=== PATIENT | male | born 1980 | race Caucasian/White ===

== ENCOUNTER 2022-12-12 15:56 | Outpatient (CLI) | payer SELFPAY | END 2022-12-12 15:57 | disposition home or self-care (01) | PROVIDERS: PCP Family Medicine; Visit Provider Family Medicine | DX: R63.4 Abnormal weight loss (principal) | CPT/HCPCS: 80053; 84443 ==

== ENCOUNTER 2023-08-31 04:00 | Outpatient (CLI) | payer OTHER, SELFPAY | END 2023-08-31 04:01 | disposition home or self-care (01) | LOC: AMB 09-06 08:16 | PROVIDERS: PCP Family Medicine; Visit Provider Family Medicine | DX: T59.94XA Toxic effect of unspecified gases, fumes and vapors, undetermined, initial encounter (principal) | CPT/HCPCS: A0998 ==